=== PATIENT | male | born 1985 | race Caucasian/White ===

== ENCOUNTER → 2022-09-21 | Outpatient (CLI) | payer OTHER ==
[~2022-09-21] MED LIST: ATIVAN1 MG PO; DARVOCET N 1001 TAB PO; KEFLEX500 MG PO; MOTRIN800 MG PO; PREDNISONE10 MG PO; SYMBICORT1 AE1 IH; VIBRAMYCIN100 MG PO; VISTARIL50 MG PO; ZITHROMAX Z PA250 MG PO
== END | disposition home or self-care (01) ==
LOC: LAB 14:40
PROVIDERS: ATTEND Internal Medicine
DX: R53.83 Other fatigue (principal); R53.1 Weakness

== ENCOUNTER → 2022-10-28 | Outpatient (CLI) | payer OTHER | END | disposition home or self-care (01) | LOC: CARD 00:20 | PROVIDERS: ATTEND Family Medicine | DX: R55 Syncope and collapse (principal) ==